=== PATIENT | male | born 1965 | race Caucasian/White ===

== ENCOUNTER 2016-11-19 20:53 | Inpatient (IN) | payer MEDICAID, MEDICARE ==
[~2016-11-19] VITALS: Ht 180.3 cm; Wt 173.3 kg
[~2016-11-19 20:53] MED LIST: ALBU8.5H3 IH; BUTA1CAP30 PO; CARI350T PO; CEFD300C37 PO; CIPR500T87 PO; ETOMIDATE 40 MG/20 ML ONE; FLUT1DIS3 INH; FURO-92 PO; GABA300C10 PO; MAGN400T26 PO; MAGN400T7 PO; METF500T4 PO; MORP60TA PO; OXYC-302 PO; OXYC15TA PO; PROM25TA10 PO; PROPOFOL 10 MG/ML, 20ML ONE; PROPOFOL 10 MG/ML, 50ML ONE; RAMI10CA PO; SUCCINYLCHOLINE 20 MG/ML, 10ML ONE; WARF10TA PO; ZOLP10TA PO
[2016-11-19] MEDS ORDERED: methylPREDNISolone SOD SUCC 125 MG/2 ML IVP ONE (21:30)
[2016-11-19] MEDS ORDERED: ALBUTEROL SULFATE 2.5 MG/3 ML NPPB ONE (21:30)
[2016-11-19] MEDS ORDERED: ALBUTEROL SULFATE 2.5 MG/3 ML ONE (21:39)
[2016-11-19] MEDS ORDERED: methylPREDNISolone SOD SUCC 125 MG/2 ML ONE (21:51)
[2016-11-19 21:54] LABS: BLOOD UREA NITROGEN 15 mg/dL (7-18)
[2016-11-19 21:59] LABS: IS PT STATUS REG ER OR PRE ER? YES
[2016-11-19] MEDS ORDERED: RIVA20TA PO (22:17)
[2016-11-19] MEDS ORDERED: ASPIRIN 81 MG TABLET CHEW PO ONE (22:30)
[2016-11-19] MEDS ORDERED: ASPIRIN 81 MG TABLET CHEW ONE (22:48)
[2016-11-19] MEDS ORDERED: SODIUM CHLORIDE 0.9% 1,000 ML IV ONE (23:11)
[2016-11-19] MEDS ORDERED: ONDANSETRON 2MG/ML, 2ML IVPush PRN (23:30)
[2016-11-19] MEDS ORDERED: MORPHINE SULFATE 4 MG/ML, 1ML IVPush PRN (23:30)
[2016-11-20] MEDS ORDERED: OMNIPAQUE 350 MG/ML, 100ML BOTTLE ONE (02:29)
[2016-11-20] MEDS ORDERED: DOCUSATE 100 MG CAPSULE PO PRN (02:30)
[2016-11-20] MEDS ORDERED: ACETAMINOPHEN 325 MG TABLET PO PRN (02:30)
[2016-11-20] MEDS ORDERED: hydrALAzine 20 MG/ML, 1ML IVPush PRN (02:30)
[2016-11-20] MEDS ORDERED: BISACODYL 10 MG SUPP PR PRN (02:30)
[2016-11-20] MEDS ORDERED: POLYETHYLENE GLYCOL 17 GM PACKET PO PRN (02:30)
[2016-11-20] MEDS ORDERED: methylPREDNISolone SOD SUCC 125 MG/2 ML ONE (03:02)
[2016-11-20] MEDS ORDERED: NICOTINE 14MG/24 HR PATCH.TD24 ONE (03:02)
[2016-11-20 03:16] LABS: ABG COLLECTION SITE RIGHT BRACHIAL
[2016-11-20 03:26] LABS: BLOOD UREA NITROGEN 16 mg/dL (7-18)
[2016-11-20 03:32] LABS: ASPARTATE AMINO TRANSFERASE 20 U/L (15-37)
[2016-11-20 03:35] LABS: IS PT STATUS REG ER OR PRE ER? YES
[2016-11-20] MEDS: methylPREDNISolone SOD SUCC 125 MG/2 ML IVPush SCH ×4 (04:10→21:21)
[2016-11-20] MEDS: NICOTINE 14MG/24 HR PATCH.TD24 TD SCH (04:11)
[2016-11-20 04:52] LABS: ABG COLLECTION SITE LEFT RADIAL; COLLATERAL CIRCULATION TESTING NORMAL
[2016-11-20] MEDS ORDERED: PROPOFOL 100 ML IV PRN (04:52)
[2016-11-20] MEDS ORDERED: GLUCAGON 1 MG IM PRN (05:00)
[2016-11-20] MEDS ORDERED: PHARMACY MAY ADJ FOR RENAL FX MC SCH (05:00)
[2016-11-20] MEDS ORDERED: LACTULOSE 20 GM/30 ML UDC NG PRN (05:00)
[2016-11-20] MEDS ORDERED: MIDAZOLAM 1 MG/ML, 2ML IVPush PRN (05:00)
[2016-11-20] MEDS ORDERED: DEXTROSE 50%, 50ML SYRINGE IVPush PRN (05:00)
[2016-11-20] MEDS ORDERED: LIDOCAINE-MPF 1%, 2ML ENDO PRN (05:00)
[2016-11-20] MEDS ORDERED: PROPOFOL 100 ML IV ONE (06:31)
[2016-11-20] MEDS: ALBUTEROL/IPRATROPIUM 2.5MG/0.5MG, 3 ML NPPB SCH ×4 (07:55→19:52)
[2016-11-20] MEDS: PROPOFOL 100 ML IV PRN ×7 (08:58→21:28)
[2016-11-20] MEDS: ASPIRIN 325 MG TABLET PO SCH (09:04)
[2016-11-20] MEDS: RIVAROXABAN 20 MG TABLET PO SCH (09:04)
[2016-11-20] MEDS: ATORVASTATIN 80 MG TABLET PO SCH ×2 (09:05→21:23)
[2016-11-20] MEDS: SODIUM CHLORIDE 0.9% 1,000 ML IV SCH ×2 (09:05→15:08)
[2016-11-20] MEDS: AZITHROMYCIN 500 MG in SODIUM CHLORIDE 0.9% 250 ML IV SCH (09:05)
[2016-11-20] MEDS: SODIUM CHLORIDE FLUSH 10ML SYR IVF SCH ×2 (09:07→21:22)
[2016-11-20] MEDS: INSULIN REGULAR 100 UNITS/ML, 3ML VIAL SQ-INSULIN SCH ×4 (09:12→22:00)
[2016-11-20 09:45] LABS: IS PT STATUS REG ER OR PRE ER? NO
[2016-11-20] MEDS ORDERED: FUROSEMIDE 40 MG/4 ML IV ONE (10:00)
[2016-11-20] MEDS ORDERED: ATROPINE SYRINGE 0.1 MG/ML, 10ML ONE (15:55)
[2016-11-20] MEDS ORDERED: EPINEPHRINE SYRINGE 0.1 MG/ML, 10ML ONE (15:55)
[2016-11-21] MEDS: SODIUM CHLORIDE 0.9% 1,000 ML IV SCH ×3 (01:00→22:23)
[2016-11-21] MEDS: NICOTINE 14MG/24 HR PATCH.TD24 TD SCH (02:30)
[2016-11-21] MEDS: methylPREDNISolone SOD SUCC 125 MG/2 ML IVPush SCH ×3 (02:30→16:43)
[2016-11-21] MEDS: ALBUTEROL/IPRATROPIUM 2.5MG/0.5MG, 3 ML NPPB SCH ×6 (03:00→20:16)
[2016-11-21] MEDS: INSULIN REGULAR 100 UNITS/ML, 3ML VIAL SQ-INSULIN SCH ×4 (04:40→22:00)
[2016-11-21 05:03] LABS: ABG COLLECTION SITE LEFT RADIAL; COLLATERAL CIRCULATION TESTING NORMAL
[2016-11-21 05:35] LABS: BLOOD UREA NITROGEN 27 mg/dL (7-18)
[2016-11-21] MEDS: ASPIRIN 325 MG TABLET PO SCH (05:42)
[2016-11-21 06:41] VITALS: BP 126/64
[2016-11-21] MEDS: PROPOFOL 100 ML IV PRN ×6 (07:11→23:57)
[2016-11-21] MEDS: RIVAROXABAN 20 MG TABLET PO SCH (07:17)
[2016-11-21] MEDS: SODIUM CHLORIDE FLUSH 10ML SYR IVF SCH ×2 (07:17→21:43)
[2016-11-21] MEDS: AZITHROMYCIN 500 MG in SODIUM CHLORIDE 0.9% 250 ML IV SCH (07:38)
[2016-11-21] MEDS ORDERED: FUROSEMIDE 40 MG/4 ML IV ONE (09:30)
[2016-11-21] MEDS: CEFTRIAXONE PMX 2GM/50ML 50 ML IVPB SCH (09:33)
[2016-11-21] MEDS ORDERED: FUROSEMIDE 40 MG/4 ML IV SCH (17:00)
[2016-11-21] MEDS: FENTANYL PF 100 MCG/2ML IVPush PRN (21:43)
[2016-11-21] MEDS: ATORVASTATIN 80 MG TABLET PO SCH (21:43)
[2016-11-22] MEDS: ALBUTEROL/IPRATROPIUM 2.5MG/0.5MG, 3 ML NPPB SCH ×6 (00:03→19:04)
[2016-11-22] MEDS: FENTANYL PF 100 MCG/2ML IVPush PRN (01:18)
[2016-11-22] MEDS: NICOTINE 14MG/24 HR PATCH.TD24 TD SCH (01:19)
[2016-11-22] MEDS: PROPOFOL 100 ML IV PRN ×2 (03:18→07:08)
[2016-11-22 04:00] VITALS: BP 112/61
[2016-11-22] MEDS: INSULIN REGULAR 100 UNITS/ML, 3ML VIAL SQ-INSULIN SCH ×4 (04:00→21:30)
[2016-11-22 04:31] LABS: ABG COLLECTION SITE LEFT RADIAL; COLLATERAL CIRCULATION TESTING NORMAL
[2016-11-22 04:46] LABS: BLOOD UREA NITROGEN 38 mg/dL (7-18)
[2016-11-22] MEDS: ASPIRIN 325 MG TABLET PO SCH (05:47)
[2016-11-22] MEDS: methylPREDNISolone SOD SUCC 125 MG/2 ML IVPush SCH ×2 (05:47→17:51)
[2016-11-22] MEDS: SODIUM CHLORIDE 0.9% 1,000 ML IV SCH (08:07)
[2016-11-22] MEDS: RIVAROXABAN 20 MG TABLET PO SCH (08:08)
[2016-11-22] MEDS: AZITHROMYCIN 500 MG in SODIUM CHLORIDE 0.9% 250 ML IV SCH (08:08)
[2016-11-22] MEDS: SODIUM CHLORIDE FLUSH 10ML SYR IVF SCH ×2 (08:23→21:32)
[2016-11-22] MEDS ORDERED: FUROSEMIDE 40 MG/4 ML IV ONE (09:30)
[2016-11-22] MEDS: CEFTRIAXONE PMX 2GM/50ML 50 ML IVPB SCH (09:42)
[2016-11-22] MEDS ORDERED: FUROSEMIDE 40 MG/4 ML IV SCH (17:00)
[2016-11-22] MEDS ORDERED: ALBUTEROL/IPRATROPIUM 2.5MG/0.5MG, 3 ML ONE (18:47)
[2016-11-22] MEDS: ATORVASTATIN 80 MG TABLET PO SCH (21:27)
[2016-11-22] MEDS: TRAZODONE 50MG TABLET PO PRN (22:38)
[2016-11-23] MEDS: NICOTINE 14MG/24 HR PATCH.TD24 TD SCH (02:25)
[2016-11-23 04:32] LABS: ABG COLLECTION SITE LEFT RADIAL; COLLATERAL CIRCULATION TESTING NORMAL
[2016-11-23 04:36] LABS: BLOOD UREA NITROGEN 46 mg/dL (7-18)
[2016-11-23] MEDS: INSULIN REGULAR 100 UNITS/ML, 3ML VIAL SQ-INSULIN SCH ×4 (05:25→20:47)
[2016-11-23 05:38] VITALS: BP 132/52
[2016-11-23] MEDS: ASPIRIN 81 MG TABLET EC PO SCH (06:37)
[2016-11-23] MEDS: methylPREDNISolone SOD SUCC 125 MG/2 ML IVPush SCH ×2 (06:37→17:12)
[2016-11-23] MEDS: ALBUTEROL/IPRATROPIUM 2.5MG/0.5MG, 3 ML NPPB SCH ×4 (06:58→20:00)
[2016-11-23] MEDS: SODIUM CHLORIDE FLUSH 10ML SYR IVF SCH ×2 (09:01→22:12)
[2016-11-23] MEDS: RIVAROXABAN 20 MG TABLET PO SCH (09:01)
[2016-11-23] MEDS: AZITHROMYCIN 500 MG in SODIUM CHLORIDE 0.9% 250 ML IV SCH (09:01)
[2016-11-23] MEDS: CEFTRIAXONE PMX 2GM/50ML 50 ML IVPB SCH (10:50)
[2016-11-23 20:00] VITALS: BP 135/80
[2016-11-23] MEDS: TRAZODONE 50MG TABLET PO PRN (22:12)
[2016-11-23] MEDS: ATORVASTATIN 80 MG TABLET PO SCH (22:12)
[2016-11-24 02:00] VITALS: BP 145/87
[2016-11-24] MEDS: NICOTINE 14MG/24 HR PATCH.TD24 TD SCH (02:13)
[2016-11-24] MEDS: INSULIN REGULAR 100 UNITS/ML, 3ML VIAL SQ-INSULIN SCH ×4 (03:16→21:08)
[2016-11-24 05:18] LABS: BLOOD UREA NITROGEN 37 mg/dL (7-18)
[2016-11-24] MEDS: methylPREDNISolone SOD SUCC 125 MG/2 ML IVPush SCH (05:36)
[2016-11-24] MEDS: ASPIRIN 81 MG TABLET EC PO SCH (05:36)
[2016-11-24 06:08] LABS: ANISOCYTOSIS 1+
[2016-11-24 06:09] LABS: HYPOCHROMIA 1+; POLYCHROMASIA 1+
[2016-11-24] MEDS: ALBUTEROL/IPRATROPIUM 2.5MG/0.5MG, 3 ML NPPB SCH ×4 (06:44→19:33)
[2016-11-24 07:06] VITALS: BP 136/82
[2016-11-24] MEDS: SODIUM CHLORIDE FLUSH 10ML SYR IVF SCH ×2 (09:10→21:08)
[2016-11-24] MEDS: RIVAROXABAN 20 MG TABLET PO SCH (09:10)
[2016-11-24] MEDS: CEFTRIAXONE PMX 2GM/50ML 50 ML IVPB SCH (09:10)
[2016-11-24] MEDS: AZITHROMYCIN 500 MG in SODIUM CHLORIDE 0.9% 250 ML IV SCH (10:17)
[2016-11-24 12:38] VITALS: BP 123/72
[2016-11-24] MEDS ORDERED: INSULIN DETEMIR 100 UNITS/ML, PEN SQ-INSULIN SCH (17:00)
[2016-11-24 20:00] VITALS: BP 134/84
[2016-11-24] MEDS: ATORVASTATIN 80 MG TABLET PO SCH (21:08)
[2016-11-25] MEDS: NICOTINE 14MG/24 HR PATCH.TD24 TD SCH (02:42)
[2016-11-25 03:27] VITALS: BP 128/78
[2016-11-25 05:14] LABS: BLOOD UREA NITROGEN 36 mg/dL (7-18)
[2016-11-25] MEDS: ASPIRIN 81 MG TABLET EC PO SCH (05:31)
[2016-11-25 07:05] LABS: ANISOCYTOSIS 1+; POLYCHROMASIA 1+
[2016-11-25 07:08] VITALS: BP 143/80
[2016-11-25] MEDS: ALBUTEROL/IPRATROPIUM 2.5MG/0.5MG, 3 ML NPPB SCH ×2 (08:06→12:05)
[2016-11-25] MEDS: AZITHROMYCIN 500 MG in SODIUM CHLORIDE 0.9% 250 ML IV SCH (09:19)
[2016-11-25] MEDS: RIVAROXABAN 20 MG TABLET PO SCH (09:19)
[2016-11-25] MEDS: INSULIN REGULAR 100 UNITS/ML, 3ML VIAL SQ-INSULIN SCH ×2 (09:19→11:57)
[2016-11-25] MEDS: SODIUM CHLORIDE FLUSH 10ML SYR IVF SCH (09:20)
[2016-11-25] MEDS: CEFTRIAXONE PMX 2GM/50ML 50 ML IVPB SCH (11:04)
[2016-11-25 12:51] VITALS: BP 118/84
== END 2016-11-25 13:51 | disposition left against medical advice (07) | DRG 208 ==
LOC: ED 22:07 → EDIP 23:11 → ICU 11-20 07:18 → 4EST 11-23 13:59
PROVIDERS: ADMIT Internal Medicine; ATTEND Family Medicine
PROC: 5A1945Z Respiratory Ventilation, 24-96 Consecutive Hours (ICD-10-PCS; principal; 2016-11-20)
PROC: 0BH17EZ Insertion of Endotracheal Airway into Trachea, Via Natural or Artificial Opening (ICD-10-PCS; 2016-11-20)
PROC: 5A09357 Assistance with Respiratory Ventilation, Less than 24 Consecutive Hours, Continuous Positive Airway Pressure (ICD-10-PCS; 2016-11-20)
DX: J96.01 Acute respiratory failure with hypoxia (principal); I21.4 Non-ST elevation (NSTEMI) myocardial infarction; J44.1 Chronic obstructive pulmonary disease with (acute) exacerbation; N17.9 Acute kidney failure, unspecified; Z99.11 Dependence on respirator [ventilator] status; J81.1 Chronic pulmonary edema; Z68.43 Body mass index [BMI] 50.0-59.9, adult; E87.2 Acidosis; E66.01 Morbid (severe) obesity due to excess calories; E11.65 Type 2 diabetes mellitus with hyperglycemia; E78.5 Hyperlipidemia, unspecified; J96.02 Acute respiratory failure with hypercapnia; F12.10 Cannabis abuse, uncomplicated; F15.10 Other stimulant abuse, uncomplicated; G47.33 Obstructive sleep apnea (adult) (pediatric); I10 Essential (primary) hypertension; I73.9 Peripheral vascular disease, unspecified; F17.200 Nicotine dependence, unspecified, uncomplicated; G89.29 Other chronic pain; M54.9 Dorsalgia, unspecified; I25.10 Atherosclerotic heart disease of native coronary artery without angina pectoris; Z86.711 Personal history of pulmonary embolism; Z86.718 Personal history of other venous thrombosis and embolism; Z87.442 Personal history of urinary calculi; Z91.19 Patient's noncompliance with other medical treatment and regimen; Z88.5 Allergy status to narcotic agent; Z88.2 Allergy status to sulfonamides; Z88.1 Allergy status to other antibiotic agents
CPT/HCPCS: 36415; 36600; 71010; 71275; 80048; 80053; 82040; 82803; 82962; 83036; 83735; 83880; 84439; 84443; 84478; 84484; 85025; 87070; 87081; 87205; 93005; 93306; 94002; 94003; 94640; 94660; 96374; 96376; J0456; J0461; J0696; J1815; J1940; J2704; J3010; J7613; J7620; Q9967; J0330; J2930; J7030; J7050; J7512

== ENCOUNTER 2016-11-25 14:08 | Inpatient (IN) | payer MEDICARE ==
[~2016-11-25] VITALS: Ht 180.3 cm; Wt 165.8 kg
[~2016-11-25 14:08] MED LIST changes: -ETOMIDATE 40 MG/20 ML ONE; -PROPOFOL 10 MG/ML, 20ML ONE; -PROPOFOL 10 MG/ML, 50ML ONE; +RIVA20TA PO; -SUCCINYLCHOLINE 20 MG/ML, 10ML ONE
[2016-11-25] MEDS ORDERED: GUAIFENESIN/DM 200-20MG, 10ML UDC PO PRN (15:00)
[2016-11-25] MEDS ORDERED: DOCUSATE 100 MG CAPSULE PO PRN (15:00)
[2016-11-25] MEDS ORDERED: ACETAMINOPHEN 325 MG TABLET PO PRN (15:00)
[2016-11-25] MEDS ORDERED: ONDANSETRON 2MG/ML, 2ML IVPush PRN (15:00)
[2016-11-25] MEDS ORDERED: morphine SULFATE 10 MG/ML, 1ML IVPush PRN (15:00)
[2016-11-25 17:01] VITALS: BP 127/80
[2016-11-25 18:36] VITALS: BP 151/92
[2016-11-25] MEDS: methylPREDNISolone SOD SUCC 40 MG/ML IVPush SCH (20:48)
[2016-11-25] MEDS: POLYETHYLENE GLYCOL 17 GM PACKET PO PRN (20:48)
[2016-11-25] MEDS: SODIUM CHLORIDE FLUSH 10ML SYR IVF SCH (20:48)
[2016-11-25] MEDS: DOXYCYCLINE 100 MG in DEXTROSE 5% 250 ML IV SCH (20:48)
[2016-11-25] MEDS: ALBUTEROL/IPRATROPIUM 2.5MG/0.5MG, 3 ML NPPB SCH (21:45)
[2016-11-26] MEDS: methylPREDNISolone SOD SUCC 40 MG/ML IVPush SCH ×4 (02:10→20:52)
[2016-11-26 02:19] VITALS: BP 136/74
[2016-11-26 06:11] LABS: BLOOD UREA NITROGEN 30 mg/dL (7-18)
[2016-11-26 07:32] VITALS: BP 152/97
[2016-11-26] MEDS: ALBUTEROL/IPRATROPIUM 2.5MG/0.5MG, 3 ML NPPB SCH ×4 (07:45→20:00)
[2016-11-26] MEDS: SODIUM CHLORIDE FLUSH 10ML SYR IVF SCH ×2 (08:12→20:52)
[2016-11-26] MEDS: RIVAROXABAN 20 MG TABLET PO SCH (08:12)
[2016-11-26] MEDS: DOXYCYCLINE 100 MG in DEXTROSE 5% 250 ML IV SCH ×2 (08:12→20:51)
[2016-11-26 10:36] LABS: IS PT STATUS REG ER OR PRE ER? NO
[2016-11-26] MEDS: POLYETHYLENE GLYCOL 17 GM PACKET PO PRN (12:58)
[2016-11-26 13:39] VITALS: BP 159/80
[2016-11-26] MEDS ORDERED: BISACODYL 5 MG EC TABLET ONE (17:26)
[2016-11-26] MEDS ORDERED: MAGNESIUM HYDROXIDE 8%, 30ML UDC PO PRN (17:30)
[2016-11-26] MEDS ORDERED: BISACODYL 5 MG EC TABLET PO PRN (17:30)
[2016-11-26 18:59] VITALS: BP_SYST 160; BP_SYST 169; BP_DIAS 101; BP_DIAS 96
[2016-11-27 01:07] VITALS: BP 143/98
[2016-11-27] MEDS: methylPREDNISolone SOD SUCC 40 MG/ML IVPush SCH ×3 (02:48→14:00)
[2016-11-27 04:53] LABS: BLOOD UREA NITROGEN 30 mg/dL (7-18)
[2016-11-27 04:57] LABS: IS PT STATUS REG ER OR PRE ER? NO
[2016-11-27] MEDS: ALBUTEROL/IPRATROPIUM 2.5MG/0.5MG, 3 ML NPPB SCH ×3 (07:25→16:30)
[2016-11-27] MEDS ORDERED: REGADENOSON 0.4 MG/5 ML SYRINGE ONE (07:54)
[2016-11-27 08:00] VITALS: BP 138/79
[2016-11-27] MEDS: RIVAROXABAN 20 MG TABLET PO SCH (11:02)
[2016-11-27] MEDS: DOXYCYCLINE 100 MG in DEXTROSE 5% 250 ML IV SCH (11:03)
[2016-11-27] MEDS: SODIUM CHLORIDE FLUSH 10ML SYR IVF SCH (11:07)
[2016-11-27 13:50] VITALS: BP 140/80
[2016-11-27] MEDS ORDERED: AMOX1TAB64 PO (14:21)
[2016-11-27] MEDS ORDERED: ALBU90AE INH (14:21)
[2016-11-27] MEDS ORDERED: PRED5TAB PO (14:21)
== END 2016-11-27 18:34 | disposition home or self-care (01) | DRG 682 ==
LOC: ED 14:41 → EDIP 14:42 → 5SO 16:57
PROVIDERS: ADMIT Family Medicine; ATTEND Family Medicine
DX: N17.9 Acute kidney failure, unspecified (principal); J96.21 Acute and chronic respiratory failure with hypoxia; J18.9 Pneumonia, unspecified organism; J44.1 Chronic obstructive pulmonary disease with (acute) exacerbation; Z68.43 Body mass index [BMI] 50.0-59.9, adult; I24.8 Other forms of acute ischemic heart disease; J44.0 Chronic obstructive pulmonary disease with (acute) lower respiratory infection; E11.65 Type 2 diabetes mellitus with hyperglycemia; E66.01 Morbid (severe) obesity due to excess calories; E78.5 Hyperlipidemia, unspecified; F15.10 Other stimulant abuse, uncomplicated; F17.200 Nicotine dependence, unspecified, uncomplicated; I73.9 Peripheral vascular disease, unspecified; G47.33 Obstructive sleep apnea (adult) (pediatric); I10 Essential (primary) hypertension; I25.2 Old myocardial infarction; Z82.49 Family history of ischemic heart disease and other diseases of the circulatory system; Z86.711 Personal history of pulmonary embolism; Z86.718 Personal history of other venous thrombosis and embolism; Z87.442 Personal history of urinary calculi; Z91.19 Patient's noncompliance with other medical treatment and regimen; Z80.9 Family history of malignant neoplasm, unspecified; Z88.5 Allergy status to narcotic agent; Z88.8 Allergy status to other drugs, medicaments and biological substances; Z91.048 Other nonmedicinal substance allergy status
CPT/HCPCS: 36415; 78452; 80048; 83735; 84484; 93005; 93017; 94640; 99285; J2785; J7060; J7620; A9502; C9898; J2920

== ENCOUNTER → 2016-12-18 | Outpatient (CLI) | payer MEDICARE ==
[~2016-12-18] MED LIST changes: +ALBU90AE INH; +AMOX1TAB64 PO; +PRED5TAB PO
== END | disposition home or self-care (01) ==
LOC: RAD 11:20
PROVIDERS: ATTEND Physician Assistant Medical
DX: J18.9 Pneumonia, unspecified organism (principal); J45.909 Unspecified asthma, uncomplicated
CPT/HCPCS: 71020

== ENCOUNTER → 2017-03-07 | Outpatient (CLI) | payer MEDICARE ==
[~2017-03-07] MED LIST changes: -ALBU8.5H3 IH; +ALBU8.5H8 IH
== END | disposition home or self-care (01) ==
LOC: RAD 17:23
PROVIDERS: ATTEND Family Medicine
DX: J44.9 Chronic obstructive pulmonary disease, unspecified (principal); R06.09 Other forms of dyspnea
CPT/HCPCS: 71020

== ENCOUNTER 2017-06-14 03:28 | Inpatient (IN) | payer MEDICARE, MEDICAID ==
[~2017-06-14] VITALS: Ht 177.8 cm; Wt 162.6 kg
[2017-06-14 05:00] LABS: RAPID INFLUENZA A Negative (Negative); RAPID INFLUENZA B Negative (Negative)
[2017-06-14 05:30] LABS: BASOPHILS # (AUTO) 0.03 x10^3/uL (0-0.1); BASOPHILS % (AUTO) 0 % (0-1); EOSINOPHILS # (AUTO) 0.21 x10^3/uL (0-0.4); EOSINOPHILS % (AUTO) 3 % (1-7); LYMPHOCYTES # (AUTO) 2.36 x10^3/uL (1-3.4); LYMPHOCYTES % (AUTO) 30 % (22-44); MD NO; MEAN CORPUSCULAR HEMOGLOBIN 29.1 pg (27.5-34.5); MEAN CORPUSCULAR HGB CONC 32.8 g/dL (33.2-36.2); MEAN CORPUSCULAR VOLUME 88.9 fL (81-97); MEAN PLATELET VOLUME 8.8 fL (7.4-10.4); MONOCYTES # (AUTO) 0.69 x10^3/uL (0.2-0.8); MONOCYTES % (AUTO) 9 % (2-9); NEUTROPHILS # (AUTO) 4.52 x10^3/uL (1.8-6.8); NEUTROPHILS % (AUTO) 58 % (42-75); PLATELET COUNT 176 x10^3/uL (130-400); RED BLOOD COUNT 5.61 x10^6/uL (4.38-5.82); RED CELL DISTRIBUTION WIDTH 16.5 % (9.4-14.8)
[2017-06-14 05:32] LABS: INTERNATIONAL NORMALIZED RATIO 1.06 (0.93-1.1)
[2017-06-14 05:48] LABS: ALBUMIN 3.1 g/dL (3.4-5.0); ANION GAP 7 mmol/L (5-15); CALCIUM 8.9 mg/dL (8.5-10.1); CHLORIDE 101 mmol/L (98-107); CREATININE 1.29 mg/dL (0.7-1.3)
[2017-06-14 05:51] LABS: TROPONIN I 0.088 ng/mL (0.000-0.045)
[2017-06-14] MEDS ORDERED: PROPARACAINE OPHTH 0.5%, 15ML EACHEYE ONE (06:00)
[2017-06-14] MEDS ORDERED: FLUORESCEIN OPHTHALMIC 1 MG STRIP EACHEYE ONE (06:00)
[2017-06-14] MEDS ORDERED: FLUORESCEIN OPHTHALMIC 1 MG STRIP ONE (06:11)
[2017-06-14] MEDS ORDERED: PROPARACAINE OPHTH 0.5%, 15ML ONE (06:11)
[2017-06-14] MEDS ORDERED: FENTANYL PF 100 MCG/2ML IV ONE (06:30)
[2017-06-14] MEDS ORDERED: FENTANYL PF 100 MCG/2ML ONE ×2 (06:38→07:20)
[2017-06-14] MEDS ORDERED: methylPREDNISolone SOD SUCC 125 MG/2 ML ONE (06:38)
[2017-06-14] MEDS ORDERED: methylPREDNISolone SOD SUCC 125 MG/2 ML IVP ONE (07:00)
[2017-06-14] MEDS ORDERED: ERYTHROMYCIN OPHTH 0.5%, 1GM EACHEYE ONE (07:00)
[2017-06-14] MEDS ORDERED: MAGNESIUM SULFATE PMX 2GM/50ML 50 ML IV ONE (07:00)
[2017-06-14] MEDS ORDERED: NALOXONE 0.4 MG/ML, 1ML ONE (07:31)
[2017-06-14] MEDS ORDERED: NALOXONE 0.4 MG/ML, 1ML IVPush ONE (08:00)
[2017-06-14 09:16] VITALS: BP 148/79
[2017-06-14] MEDS ORDERED: BISACODYL 10 MG SUPP PR PRN (10:00)
[2017-06-14] MEDS ORDERED: TEMPLATE NON-FORMULARY MED. (Albuterol Sulfate (Proair Respiclick) 2 PUFF(S)) INH PRN (10:00)
[2017-06-14] MEDS ORDERED: THIAMINE 100 MG, MVI ADULT 10 ML, FOLIC ACID 1 MG in D5%-0.9% NACL 1,000 ML IV SCH (10:00)
[2017-06-14] MEDS ORDERED: ENOXAPARIN 40 MG/0.4 ML SQ SCH (10:00)
[2017-06-14] MEDS ORDERED: DOCUSATE 100 MG CAPSULE PO PRN (10:00)
[2017-06-14] MEDS: RIVAROXABAN 20 MG TABLET PO SCH (10:00)
[2017-06-14] MEDS ORDERED: POLYETHYLENE GLYCOL 17 GM PACKET PO PRN (10:00)
[2017-06-14 10:35] LABS: TROPONIN I 0.082 ng/mL (0.000-0.045)
[2017-06-14] MEDS: methylPREDNISolone SOD SUCC 125 MG/2 ML IVPush SCH ×3 (14:01→22:51)
[2017-06-14] MEDS ORDERED: ALBUTEROL/IPRATROPIUM 2.5MG/0.5MG, 3 ML ONE (20:34)
[2017-06-14] MEDS ORDERED: ALBUTEROL/IPRATROPIUM 2.5MG/0.5MG, 3 ML NPPB PRN (21:00)
[2017-06-14] MEDS: FAMOTIDINE 20 MG/2 ML IVPush SCH (22:51)
[2017-06-15 04:00] VITALS: BP 150/66
[2017-06-15] MEDS: methylPREDNISolone SOD SUCC 125 MG/2 ML IVPush SCH ×4 (04:32→22:06)
[2017-06-15 04:51] LABS: BASOPHILS # (AUTO) 0.03 x10^3/uL (0-0.1); BASOPHILS % (AUTO) 0 % (0-1); EOSINOPHILS % (AUTO) 0 % (1-7); LYMPHOCYTES # (AUTO) 1.46 x10^3/uL (1-3.4); LYMPHOCYTES % (AUTO) 12 % (22-44); MD NO; MEAN CORPUSCULAR HEMOGLOBIN 28.8 pg (27.5-34.5); MEAN CORPUSCULAR HGB CONC 32.2 g/dL (33.2-36.2); MEAN CORPUSCULAR VOLUME 89.3 fL (81-97); MONOCYTES # (AUTO) 0.24 x10^3/uL (0.2-0.8); MONOCYTES % (AUTO) 2 % (2-9); NEUTROPHILS # (AUTO) 10.67 x10^3/uL (1.8-6.8); NEUTROPHILS % (AUTO) 86 % (42-75); PLATELET COUNT 219 x10^3/uL (130-400); RED BLOOD COUNT 5.88 x10^6/uL (4.38-5.82); RED CELL DISTRIBUTION WIDTH 16.7 % (9.4-14.8)
[2017-06-15 05:07] LABS: ALANINE AMINOTRANSFERASE 20 U/L (12-78); ALBUMIN 3.1 g/dL (3.4-5.0); ANION GAP 7 mmol/L (5-15); CALCIUM 8.6 mg/dL (8.5-10.1); CHLORIDE 102 mmol/L (98-107); CREATININE 1.11 mg/dL (0.7-1.3)
[2017-06-15 05:10] LABS: ALKALINE PHOSPHATASE 100 U/L (45-117); BILIRUBIN,TOTAL 0.3 mg/dL (0.2-1.0)
[2017-06-15] MEDS: ALBUTEROL/IPRATROPIUM 2.5MG/0.5MG, 3 ML NPPB SCH ×3 (06:54→19:25)
[2017-06-15] MEDS: FAMOTIDINE 20 MG/2 ML IVPush SCH ×2 (10:19→20:33)
[2017-06-15] MEDS: RIVAROXABAN 20 MG TABLET PO SCH (10:19)
[2017-06-15] MEDS: MULTIVITAMIN 1 TABLET PO SCH (10:20)
[2017-06-15] MEDS: FOLIC ACID 1 MG TABLET PO SCH (10:20)
[2017-06-15] MEDS: THIAMINE 100MG TABLET PO SCH (10:20)
[2017-06-16] MEDS: methylPREDNISolone SOD SUCC 125 MG/2 ML IVPush SCH ×2 (03:00→10:00)
[2017-06-16 04:39] VITALS: BP 152/89
[2017-06-16 04:47] LABS: ANION GAP 6 mmol/L (5-15); BASOPHILS # (AUTO) 0.04 x10^3/uL (0-0.1); BASOPHILS % (AUTO) 0 % (0-1); CALCIUM 9.5 mg/dL (8.5-10.1); CHLORIDE 98 mmol/L (98-107); EOSINOPHILS % (AUTO) 0 % (1-7); LYMPHOCYTES # (AUTO) 1.47 x10^3/uL (1-3.4); LYMPHOCYTES % (AUTO) 9 % (22-44); MD NO; MEAN CORPUSCULAR HEMOGLOBIN 28.5 pg (27.5-34.5); MEAN CORPUSCULAR HGB CONC 32.1 g/dL (33.2-36.2); MONOCYTES # (AUTO) 0.48 x10^3/uL (0.2-0.8); MONOCYTES % (AUTO) 3 % (2-9); NEUTROPHILS # (AUTO) 13.88 x10^3/uL (1.8-6.8); NEUTROPHILS % (AUTO) 88 % (42-75); PLATELET COUNT 222 x10^3/uL (130-400); RED BLOOD COUNT 5.74 x10^6/uL (4.38-5.82); RED CELL DISTRIBUTION WIDTH 16.9 % (9.4-14.8)
[2017-06-16 04:49] LABS: CREATININE 1.23 mg/dL (0.7-1.3)
[2017-06-16 05:28] VITALS: BP 127/85
[2017-06-16] MEDS: ALBUTEROL/IPRATROPIUM 2.5MG/0.5MG, 3 ML NPPB SCH ×3 (07:52→15:10)
[2017-06-16] MEDS: RIVAROXABAN 20 MG TABLET PO SCH (10:01)
[2017-06-16] MEDS: THIAMINE 100MG TABLET PO SCH (10:01)
[2017-06-16] MEDS: FOLIC ACID 1 MG TABLET PO SCH (10:01)
[2017-06-16] MEDS: MULTIVITAMIN 1 TABLET PO SCH (10:01)
[2017-06-16] MEDS ORDERED: INSULIN ASPART 100 UNITS/ML, PEN SQ-INSULIN SCH (16:30)
[2017-06-16] MEDS ORDERED: methylPREDNISolone SOD SUCC 125 MG/2 ML IVPush SCH (18:00)
== END 2017-06-16 19:00 | disposition left against medical advice (07) | DRG 70 ==
LOC: ED 05:37 → EDIP 06:53 → CCU 08:17 → 5SO 06-16 05:23
PROVIDERS: ADMIT Hospitalist; ATTEND Hospitalist
PROC: 5A09457 Assistance with Respiratory Ventilation, 24-96 Consecutive Hours, Continuous Positive Airway Pressure (ICD-10-PCS; principal; 2017-06-14)
DX: G93.40 Encephalopathy, unspecified (principal); J96.21 Acute and chronic respiratory failure with hypoxia; Z99.11 Dependence on respirator [ventilator] status; D68.69 Other thrombophilia; E11.51 Type 2 diabetes mellitus with diabetic peripheral angiopathy without gangrene; E11.65 Type 2 diabetes mellitus with hyperglycemia; E66.2 Morbid (severe) obesity with alveolar hypoventilation; J96.22 Acute and chronic respiratory failure with hypercapnia; E87.2 Acidosis; J44.1 Chronic obstructive pulmonary disease with (acute) exacerbation; Z68.43 Body mass index [BMI] 50.0-59.9, adult; I24.8 Other forms of acute ischemic heart disease; E66.9 Obesity, unspecified; Z88.6 Allergy status to analgesic agent; Z88.5 Allergy status to narcotic agent; Z88.8 Allergy status to other drugs, medicaments and biological substances; E78.5 Hyperlipidemia, unspecified; F12.90 Cannabis use, unspecified, uncomplicated; F15.90 Other stimulant use, unspecified, uncomplicated; F17.210 Nicotine dependence, cigarettes, uncomplicated; G47.30 Sleep apnea, unspecified; H10.021 Other mucopurulent conjunctivitis, right eye; H10.029 Other mucopurulent conjunctivitis, unspecified eye; I10 Essential (primary) hypertension; I25.2 Old myocardial infarction; Z82.49 Family history of ischemic heart disease and other diseases of the circulatory system; Z86.711 Personal history of pulmonary embolism; Z86.718 Personal history of other venous thrombosis and embolism; Z87.440 Personal history of urinary (tract) infections; Z87.442 Personal history of urinary calculi; Z99.81 Dependence on supplemental oxygen
CPT/HCPCS: 36415; 36600; 70450; 71045; 80048; 80053; 82040; 82803; 82962; 83605; 83735; 83880; 84484; 85025; 85610; 85730; 87040; 87081; 87400; 93005; 94640; 94660; 96365; 96375; J1815; J2310; J3010; J3411; J7042; J7620; J2930; J3475; S0028

== ENCOUNTER → 2017-09-12 | Outpatient (CLI) | payer MEDICARE, MEDICAID | END | disposition home or self-care (01) | LOC: RAD 11:52 | PROVIDERS: ATTEND Family Medicine | DX: I67.82 Cerebral ischemia (principal); R90.82 White matter disease, unspecified | CPT/HCPCS: 70551 ==